=== PATIENT | male | born 1950 | race Caucasian/White ===

== ENCOUNTER → 2023-05-05 08:32 | Outpatient (REF) | payer MEDICARE, OTHER, SELFPAY | LOC: MRI 3T 08:32 | PROVIDERS: ATTENDING PHYSICIAN Physical Medicine & Rehabilitation; FAMILY PHYSICIAN Family Medicine | DX: M54.12 Radiculopathy, cervical region (principal) | CPT/HCPCS: 72141 ==

== ENCOUNTER → 2024-03-20 10:37 | Outpatient (REF) | payer MEDICARE, OTHER, SELFPAY | LOC: HWRAD 10:37 | PROVIDERS: ATTENDING PHYSICIAN Family Medicine | DX: R51.9 Headache, unspecified (principal) | CPT/HCPCS: 70450 ==

== ENCOUNTER → 2024-05-29 08:49 | Outpatient (REF) | payer MEDICARE, OTHER, SELFPAY | LOC: RAD 08:49 | PROVIDERS: ATTENDING PHYSICIAN Student in an Organized Health Care Education/Training Program; FAMILY PHYSICIAN Family Medicine | DX: R10.9 Unspecified abdominal pain (principal) | CPT/HCPCS: 74177; Q9967 ==

== ENCOUNTER → 2024-08-07 09:59 | Outpatient (REF) | payer MEDICARE, OTHER, SELFPAY | LOC: HWRAD 09:59 | PROVIDERS: ATTENDING PHYSICIAN Family Medicine | DX: N50.89 Other specified disorders of the male genital organs (principal); N50.819 Testicular pain, unspecified; N43.0 Encysted hydrocele | CPT/HCPCS: 76870; 93976 ==

== ENCOUNTER → 2024-11-24 15:44 | Outpatient (REF) | payer MEDICARE, OTHER, SELFPAY | LOC: RAD 15:44 | PROVIDERS: ATTENDING PHYSICIAN Family Medicine | DX: R06.02 Shortness of breath (principal) | CPT/HCPCS: 71275; Q9967 ==

== ENCOUNTER → 2024-11-26 07:57 | Outpatient (REF) | payer MEDICARE, OTHER, SELFPAY | LOC: HWRCS 07:57 | PROVIDERS: ATTENDING PHYSICIAN Internal Medicine Cardiovascular Disease; FAMILY PHYSICIAN Family Medicine | DX: R06.09 Other forms of dyspnea (principal) | CPT/HCPCS: 78452; 93017; A9500 ==

== ENCOUNTER → 2024-11-27 10:54 | Outpatient (REF) | payer MEDICARE, OTHER, SELFPAY | LOC: HWRCS 10:54 | PROVIDERS: ATTENDING PHYSICIAN Internal Medicine Cardiovascular Disease; FAMILY PHYSICIAN Family Medicine | DX: R06.09 Other forms of dyspnea (principal) | CPT/HCPCS: 93306 ==

== ENCOUNTER 2024-11-30 11:34 | Day surgery (SDC) | payer MEDICARE, OTHER, SELFPAY ==
[2024-11-30] VITALS (15 sets, daily range): BP systolic 98–158; BP diastolic 50–79; BMI 20.2
[2024-11-30 06:22] LABS: Hematocrit 43.8 % (39.0-52.0); Hemoglobin 14.6 g/dL (13.0-18.0); Mean Corp Hgb Conc. 33.3 g/dL (33.0-37.0); Mean Corpuscular Volume 94.4 fL (80.0-94.0); Nucleated Red Blood Cells % 0 % (-); Platelet Count 206 10^3/uL (130-400); Red Cell Dist. Width 12.6 % (11.5-14.5)
[2024-11-30 06:33] LABS: ALT (SGPT) 19 U/L (0-50); AST (SGOT) 22 U/L (17-59); Albumin 4.7 g/dl (3.5-5.0); Alkaline Phosphatase 48 U/L (38-126); Blood Urea Nitrogen 13 mg/dl (9-20); Calcium 9.2 mg/dl (8.4-10.2); Carbon Dioxide 27 mmol/L (22-30); Chloride 103 mmol/L (98-107); Estimated Creatinine Clearance 77 ml/min; Glucose 105 mg/dl (70-99); Potassium 3.9 mmol/L (3.5-5.1); Sodium 137 mmol/L (135-145); Total Protein 7.3 g/dl (6.3-8.2); eGFR > 60.00
--- NOTE | 2024-11-30 06:39 | ED.GENMED ---
History of Present Illness
General
Chief Complaint: Cardiac Symptoms
Source: patient and spouse
Time Seen by Provider: 11/30/24 06:07
Nursing documentation reviewed up to this point in time: agreed with
History of Present Illness
History of Present Illness:
Patient is a 74-year-old male past with history of hypertension hyperlipidemia diverticulitis presents to the ER for evaluation of chest pain. Patient has had intermittent shortness of breath for the past 1 month and has been eval by cardiology.
He has had recent imaging/testing including CAT scan which was negative. In addition patient had stress test which showed moderate size defect consistent with ischemia.
Patient reports this morning he was woken around 430 morning by a squeezing chest pain in the midsternal region. He did not feel short of breath with this. He did have some tingling in his arms and fingers. Presently he feels that symptoms are
improving.
He is scheduled for cardiac catheterization tomorrow morning. He is followed by Dr. Cholo Moreno.
Past History
Past History
ED Past Medical History: GERD, Hypercholesterolemia and Other (Sigmoid diverticulitis)
ED Past Surgical History: Other (Surgery for diverticulitis)
Social History
Tobacco: Non-smoker
Alcohol: Other
Drug: None
Personal:
Living: with family
Employment: Other
Family History
Family History: Other (n/c)
Phy Exam
General Physical Exam
General Presentation: no apparent distress
General age: appears stated age
General Skin: warm and dry
General Habitus: normal
General Mental: alert
General Hydration: appears well hydrated
Cardiovascular Exam
Cardiovascular Exam: regular rate/rhythm, no murmur and normal peripheral pulses
Pulmonary Exam
Pulmonary Exam: lungs clear and no respiratory distress
Neurological Exam
Neurological Exam: alert and oriented x3
Musculoskeletal Exam
Musculoskeletal Exam: full ROM
Skin Exam
Skin Exam: normal color and warm/dry
Psychiatric Exam
Psychiatric Exam: normal mood/affect
Course
Orders/Labs/Results
Orders:
Orders
11/30/24 05:40
ECG [Electrocardiogram (*1)] Urgent
Reason for Study: Chest Pain
EKG- Treatment ONCE
11/30/24 06:09
Complete Blood Count/With Diff Urgent
Comprehensive Metabolic Panel Urgent
Troponin I Urgent
11/30/24 06:41
Aspirin Chewable [Low Strength Aspirin] 324 mg PO NOW STA
11/30/24 08:36
Troponin I Urgent
11/30/24 Lunch
Cholesterol Lowering
At Your Request: Full Participation
Cholesterol Lowering: Sodium, 2 Gram
11/30/24 10:06
Fentanyl Citrate/Pf [Sublimaze] 100 mcg .ROUTE .STK-MED ONE
Heparin 10,000 units .ROUTE .STK-MED ONE
Midazolam HCl [Versed] 2 mg .ROUTE .STK-MED ONE
11/30/24 10:11
Heparin 1000 Units/500 ml [Heparin] 1,000 units in 500 ml .ROUTE .STK-MED
Heparin Sodium,Porcine/Ns/Pf [Heparin 2000 Units/1000 ml] 2,000 unit in 1,000 ml .ROUTE .STK-MED
Lidocaine HCl/Pf [Xylocaine-Mpf 1% Vial] 100 mg .ROUTE .STK-MED ONE
Nitroglycerin [Tridil] 1,500 mcg .ROUTE .STK-MED ONE
Verapamil Injectable [Isoptin/Verapamil Injection] 5 mg .ROUTE .STK-MED ONE
11/30/24 10:49
Lidocaine HCl/Pf [Xylocaine-Mpf 1% Vial] 100 mg .ROUTE .STK-MED ONE
11/30/24 11:38
Electrocardiogram (*1) Urgent
Reason for Study: Other
Other Reason for Exam: post cath
Comment: dca
Activity As Directed
Activity Level: Bedrest
Comment: refer to hemostasis device used for bedrest duration, then ambulate ad zain
[facility] Procedure As Directed
Cardiac Cath Procedure: percutaneous coronary intervention
Femoral Artery Hemostasis Method As Directed
Procedure performed:: Percutaneous Coronary Int
Type of femoral hemostasis method used:: Internal Closure Device
Duration of bedrest (hours):: 3
Call provider if:: hematoma present after hemostasis achieved
Head of Bed-Restrictions As Directed
Comment: may elevate head of bed 30 degrees
Intake/ Output As Directed
Frequency: Per unit guidelines
Notify MD As Directed
Notify physician if: immediately for chest pain or bleeding from access site(s)
Site Checks As Directed
Check access site for bleeding/hematoma: Yes
Comment: on arrival, Q15min x4, Q30min x2, Q1 hr x2, Q2 hr x2, Q4 hr or per
protocol
Vascular Checks As Directed
Location: distal to access site - pulse check
Frequency: Other
Comment: on arrival, Q15min x4, Q30min x2, Q1 hr x2, Q2 hr x2, Q4 hr or per protocol
Vital Signs As Directed
Frequency: Other
Additional Instructions:: on arrival, Q15min x4, Q30min x2, Q1 hr x2, Q2 hr x2, then Q4 hr or per unit
protocol
11/30/24 11:45
0.9% Sodium Chloride 1000 ml [Nss] 1,000 ml IV PER PROTOCOL
Infusion rate in mL/kg/hr:: 1.5
Infusion rate in mL/hr:: 89
Duration of infusion (hours):: 5
11/30/24 11:57
Admit/Transfer Patient As Directed
Co-Sign Provider:
Level of Care: Observation services
Assign to:: IVU
Physician / Group: Eugenia Miller
Diagnosis: Chest Pain unclear etiology
PRN Pain Medication Management As Directed
May give lesser potent ordered pain med per pt: Yes
preference::
Protocol:: Medication orders for pain may be administered in a
manner that supports deferring to patient preference
when the pt is:
- Requesting an ordered lesser potent pain medication.
Least to most potent pain medications are defined
as: acetaminophen < NSAID < tramadol < opioids
(morphine, oxycodone, hydromorphone).
- Requesting a lesser dose of the same medication IF
ORDERED.
- Requesting a less intrusive route of administration
if both routes are prescribed by the provider (PO <
IV).
11/30/24 11:59
Code Status As Directed
Resuscitation Status: Full Code
11/30/24 12:04
Bisacodyl [Dulcolax] 10 mg RECTAL [id number] PRN
Docusate W/Senna [Senokot-S] 1 tablet PO BIDPRN PRN
Polyethylene Glycol Powder [Miralax] 17 grams PO DAILYPRN PRN
11/30/24 12:04
Pneumatic Compression Sleeves As Directed
Type: Knee high
DX Deep Vein Thrombosis Video Routine
11/30/24 14:00
Amlodipine [Norvasc] 5 mg PO DAILY
11/30/24 16:30
Troponin I Routine
11/30/24 18:00
Atorvastatin [Lipitor] 80 mg PO QPM
11/30/24 20:00
Carvedilol [Coreg] 6.25 mg PO BID
Lisinopril [Zestril] 10 mg PO BID
12/01/24 06:00
Electrocardiogram (*1) IN AM
Reason for Study: Other
Other Reason for Exam: post cath
Comment: dca
Basic Metabolic Panel IN AM
Cardiovascular Evaluation IN AM
Complete Blood Count/No Diff IN AM
12/01/24 08:00
Aspirin Chewable [Low Strength Aspirin] 81 mg PO DAILY
Pantoprazole [Protonix] 40 mg PO DAILY
Abnormal Lab Results
11/30/24 11/30/24 11/30/24
06:09 11:15 11:37
RBC 4.64 L 10^6/uL
(4.70-6.10)
MCV 94.4 H fL
(80.0-94.0)
MCH 31.5 H pg
(27.0-31.0)
Glucose 105 H mg/dl
(70-99)
POC ACT Low Range 274 H Seconds 268 H Seconds
(116-155) (116-155)
11/30/24 06:09
11/30/24 06:09
Vital Signs
Initial and Last Documented VS:
Initial Vital Signs
Temp Pulse Resp BP Pulse Ox
97.4 F 76 20 138/72 100
11/30/24 05:37 11/30/24 05:37 11/30/24 05:37 11/30/24 05:37 11/30/24 05:37
Last Documented Vital Signs
Temp Pulse Resp BP Pulse Ox
98.5 F 82 18 125/71 100
11/30/24 12:10 11/30/24 10:05 11/30/24 13:13 11/30/24 09:00 11/30/24 12:10
MDM/Problems Addressed
Differential Diagnosis Includes:
Not limited to ACS less likely reflux
MDM/Problems Addressed:
As documented patient is a 74-year-old male who is scheduled to have a cardiac catheterization tomorrow for an abnormal outpatient stress test November 26. Patient was awoken by midsternal chest pain this morning which has since resolved he was
given aspirin by myself, his initial cardiac troponin is negative no acute ST elevation. Case reviewed with cardiology on-call Dr. Gil and plan to the patient directly to [facility].
Chronic conditions affecting care:
High blood pressure hyperlipidemia
*Pulse Oximetry
SaO2: 100
Oxygen Mode of Delivery: Room air
Patient hypoxic: no
*EKG
Interpreted by ED Provider?: Yes
Interpretation: abnormal
Heart Rate: 76
Rate: normal
Rhythm: sinus
Ischemia: non-specific ST changes
*Critical Care Note
Total Time (30-74mins, 75-104mins- exclusive of procedures): Not Applicable
Patient Management
Discussion with other providers: [employer] (Cardiology Dr. Gil )
ED Attending Note
-
Portions of this chart may have been created with voice recognition software.� Occasional wrong word or��sound alike� substitutions may have occurred due to the inherent limitations of voice recognition software.
Discharge Plan
Departure
Patient Disposition: CLAIMS REPRESENTATIVE
Presentation/result/management discussed w/ accepting MD/DO: adele
Patient with high blood pressure during this ER visit?: Yes
Condition: Fair
Covid-19: Not Applicable
Discharge Problem:
Chest pain
Interventions
Interventions:
*Risk Screen - Suicide Last Done: 11/30/24 05:37
*General Assessment Last Done: 11/30/24 05:51
*Neglect/Abuse Screening Last Done: 11/30/24 05:37
*ED- Fall Risk Assessment Last Done: 11/30/24 05:51
*ED COVID-19 Vaccine History Last Done: 11/30/24 06:34
*Nursing Disposition Last Done: 11/30/24 10:28
ED- Pulmonary Assessment Last Done: 11/30/24 05:51
ED- Cardiac Assessment Last Done: 11/30/24 05:51
Discharge Date and Time
Discharge Date/Time: 11/30/24 10:28
[2024-11-30 06:45] LABS: Troponin I < 0.012 ng/ml
[2024-11-30] MEDS: LOW STRENGTH ASPIRIN 324 MG PO (06:49)
--- NOTE | 2024-11-30 07:20 | CON.CAR ---
Addendum entered and electronically signed by Akira Haskins MD 11/30/24 10:17:
Attending addendum: Patient seen and examined. PA note reviewed and findings independently confirmed by me. I personally reviewed stress, echo findings. I met with patient and his and reviewed history. He has a long history of chest
discomfort. His recent stress study was notable for an average exercise capacity with marked ECG changes involving leads II, 3, aVF and anterolateral leads V4-V6. Perfusion revealed an apical and inferior apical reversible defect as well as septal
defect. He was scheduled for coronary angiography but developed repeat chest discomfort. He became chest pain-free. His initial troponin was undetectable and his electrocardiogram was without acute ST-T changes. He remains chest pain-free.
Physical exam
GEN: AAO x 3.��No acute distress
HEENT:��NC/AT, sclera are anicteric, hearing and nares are normal.�
NECK: Supple.��Normal JVP
LUNGS: Clear to bases bilaterally.��No wheezing or rhonchi
CV: Regular rate and rhythm.��Normal S1/S2.��No S3, No S4.��Murmur: None
ABD : Soft, NT, ND, No HSM.��Bowel sounds are present.
EXT: No CCE. Dorsalis pedal and posterior tibial pulses are palpable but faint
NEURO: No focal neurologic deficits
RECOMMENDATION:
-Discussed proceeding with coronary angiography which had been scheduled for later this week. The risks and benefits of the procedure have been explained.
-Patient received aspirin 325 mg on arrival to the emergency room
-Further management decisions to be made after the angiogram is completed
-Will continue to trend additional troponin levels
-Fasting lipid profile
Original Note:
Consultation
Consultation Request
Date/Time Consultation Requested: 11/30/2024, 0700
Date/Time Consultation Performed: 11/30/2024 0720
Requesting Provider: Renetta Lawrence
Performing Provider: MELISSA Posadas for Dr Haskins
Reason for Consultation: chest pain and SOB
Medical History
-
Chief Complaint: chest pain
History of Present Illness:
74-year-old male with past medical history hypertension, hyperlipidemia, GERD, atypical chest pain, recent development of dyspnea on exertion and PND over past month. Seen in office 11/24/[address] Bonilla and echo and nuclear stress test ordered.
Abnormal exercise nuclear stress test on 11/26/2024 showing moderate sized moderate partially reversible defect in the apex, apical septum, inferior apical, mid inferoseptal, mid anterior septal, basal inferion septal and mod inferior regions.
Achieved 7 METS on Mekhi protocol, exercise limited by [place]. Scheduled for cath tomorrow. Echo on 11/27/2024 showed normal LV/RV size and function with no significant valvular heart disease. Patient had chest CT 11/24/2024 that showed no evidence of
central pulmonary embolism.
This morning patient woke up with squeezing substernal chest pain as well as R sided pain radiating from RUQ to R shoulder and shortness of breath, improved upon presentation to ED. Troponin undetectable x 1. EKG NSR 1st degreeAVB, no ST-T wave
abnormality.
Yesterday pt walked through [place] from [facility] to movie theater and when sat down at theater felt SOB, thought he may have to leave but symptoms resolved.
He has reduced his walking distance due to fear of developing shortness of breath.
PMH:
Hypertension
Hyperlipidemia
GERD
Diverticulitis
Sigmoid diverticuliti esophageal stricture
Nephrolithiasis
Cholecystectomy 2022
Past Medical History
Past Medical History: Other (As above)
Past Surgical History: Appendectomy (Open sigmoidectomy 2007, right ankle repair, right C7-T1 I L HARPAL 05/2023, /06/2023, /12/2023) and Cholecystectomy
Social History
Tobacco: Non-Smoker
Alcohol: Occasional
Drug: None
Family History
Family History: Other (Father with bypass at age 80, son with Marfan and ascending aorta replaced)
Allergies / Home Medications
Allergy/AdvReac Type Severity Reaction Status Date / Time
azithromycin Allergy THROAT Verified 11/30/24 05:40
CLOSES
clindamycin HCl (From Allergy dizzy,nause Verified 11/30/24 05:40
Cleocin) a
erythromycin base Allergy Unknown Verified 11/30/24 05:40
minocycline Allergy dizzy,nause Verified 11/30/24 05:40
a
Tetracyclines Allergy Unknown Verified 11/30/24 05:40
�Medication �Instructions �Recorded �Confirmed �Type
atorvastatin 10 mg tablet 10 mg PO DAILY High Cholesterol 08/18/14 12/25/22 History
Al hyd-Mg tr-alg ac-sod bicarb 80 1 tab PO BIDPRN PRN gerd 09/06/22 12/25/22 History
mg-14.2 mg chewable tablet
(Gaviscon)
acetaminophen 325 mg tablet 650 mg PO Q4HPRN PRN mild pain 09/06/22 12/25/22 History
(Tylenol)
lisinopril 10 mg tablet 10 mg PO DAILY Blood Pressure 09/06/22 12/25/22 History
omeprazole 40 mg capsule,delayed 40 mg PO DAILY Gastrointestinal 09/06/22 12/25/22 History
release Issue
ibuprofen 200 mg tablet 400 - 600 mg (2 - 3 x 200 mg) PO 12/25/22 Rx
Q6HPRN PRN moderate pain #1 tab
metronidazole 0.75 % topical gel 1 applic topical DAILYPRN PRN face 12/25/22 12/25/22 History
oxycodone 5 mg tablet 5 mg PO Q4HPRN PRN 12/25/22 Rx
breakthrough/severe pain #10 tabs
tamsulosin 0.4 mg capsule 0.4 mg PO QPM 12/25/22 12/25/22 History
Review of Systems
-
History Source: Patient
Constitutional: No Symptoms
Physical Exam
Vital Signs
Temp Pulse Resp BP Pulse Ox
97.4 F 69 15 158/79 97
11/30/24 05:37 11/30/24 06:45 11/30/24 06:45 11/30/24 05:51 11/30/24 06:45
GEN: No distress, awake, Ox3
HEENT: supple, anicteric, mmm
LUNGS: CTA, no wheezes/rales
CV: Reg, S1/S2, no murmur
ABD: soft, BS+, NT/ND
EXT: No edema
NEURO: Gross non-focal
SKIN: No rash
Lab Results
11/30/24 06:09
11/30/24 06:09
Troponin I < 0.012 ng/ml 11/30/24 06:09
Impression / Plan
-
PCP: Alexandr Purvis
Primary janitor custodian: Cholo Bonilla MD
Impression:
Chest pain
Shortness of breath
Abnormal nuclear stress test
Hypertension
Hyperlipidemia
GERD
Previous cardiovascular testing:
Echo 11/27/2024: Normal LV/RV size and function, LVEF 61%, no significant valvular abnormalities
Exercise nuclear stress test 11/26/2024: moderate sized moderate partially reversible defect in the apex, apical septum, inferior apical, mid inferoseptal, mid anterior septal, basal inferior septal and mod inferior regions. Achieved 7 METS on Mekhi
protocol, exercise limited by [place].
Plan:
74-year-old male with PMH hypertension, hyperlipidemia, GERD, atypical chest pain, recent development of dyspnea on exertion and PND, recent nuclear stress test with moderate reversible defects, scheduled for [facility] tomorrow, presents with squeezing
chest pain and shortness of breath, waking him from sleep. Symptoms resolved upon presentation to ED. Troponin negative x 1, EKG nonischemic. Rec'd ASA 324 mg in ED.
-trend troponin
-keep NPO, for possible cath today
-currently CP/SOB- free
-cont Lisinopril
-cont statin
- Continue meds for GERD, omeprazole and famotidine
-telemetry personally reviewed: NSR
-creat 0.7
discussed with nursing, pt and
Data Reviewed
-
EKG: Tracing Personally Visualized and interpreted
Labs: Labs Reviewed by me
[2024-11-30 09:08] LABS: Troponin I < 0.012 ng/ml
[2024-11-30 11:33] LABS: ACT-LR - POC 274 Seconds (116-155)
[2024-11-30 11:52] LABS: ACT-LR - POC 268 Seconds (116-155)
--- NOTE | 2024-11-30 11:55 | HPS.HSE ---
Family Physician
-
Family Physician: Alexandr Purvis
Chief Complaint
-
Chest Pain
History of Present Illness
74M HTN, HLD, GERD, atypical chest pain, recent development of dyspnea on exertion and PND over past month. Recently seen by Cardiology, ECHO and nuclear stress performed. Abnormal exercise nuclear stress test on 11/26/2024 showing moderate sized
partially reversible defect. Achieved 7 METS on Mekhi protocol, exercise limited by [place]. ECHO 11/27/2024 showed normal LV/RV size and function with no significant valvular heart disease. Patient had chest CT 11/24/2024 that showed no evidence of
central pulmonary embolism. 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 Improved upon presentation to ED. Troponin undetectable. EKG NSR, no
significant ST-T wave abnormalities noted. Patient subsequently underwent Cath with no signficant coronary stenosis noted.
Medical History
Past Medical History
Past Medical History: Reports Other (as above)
Past Surgical History: Reports Other (as above)
Social History
Tobacco: Non-smoker
Drug: None
Personal:
Living: With Family
Family History
Family History: Not pertinent (reviewed)
Allergies / Home Medications
Allergies reflects when Allergies were last updated in [facility].
Home Medications with original date entered in [facility]
Allergy/Medication List:
Allergies
Allergy/AdvReac Type Severity Reaction Status Date / Time
azithromycin Allergy THROAT Verified 11/30/24 05:40
CLOSES
clindamycin HCl (From Allergy dizzy,nause Verified 11/30/24 05:40
Cleocin) a
erythromycin base Allergy Unknown Verified 11/30/24 05:40
minocycline Allergy dizzy,nause Verified 11/30/24 05:40
a
Tetracyclines Allergy Unknown Verified 11/30/24 05:40
Home Medications
atorvastatin 10 mg tablet 10 mg PO DAILY High Cholesterol 08/18/14
lisinopril 10 mg tablet 10 mg PO BID Blood Pressure 09/06/22
omeprazole 40 mg capsule,delayed release 40 mg PO DAILY Gastrointestinal Issue 09/06/22
Review of Systems
-
A 12 point ROS was completed and negative except as noted: Yes
Constitutional: Reports Other (as below)
Physical Exam
Vital Signs
Vital Signs
Temp Pulse Resp BP Pulse Ox
97.4 F 82 19 125/71 100
11/30/24 05:37 11/30/24 10:05 11/30/24 10:05 11/30/24 09:00 11/30/24 09:45
Physical Exam
General: Other (as below)
Laboratory Results
-
11/30/24 06:09
11/30/24 06:09
Laboratory Results
Total Bilirubin 1.1 mg/dl (0.2-1.3) 11/30/24 06:09
AST 22 U/L (17-59) 11/30/24 06:09
ALT 19 U/L (0-50) 11/30/24 06:09
Alkaline Phosphatase 48 U/L (38-126) 11/30/24 06:09
Troponin I < 0.012 ng/ml 11/30/24 08:36
Impression/Plan
-
ROS
General: Denies fever chills night sweats unexpected weight loss
Neuro: Denies seizure shaking loss of consciousness dizziness vertigo
Psych: denies depression hallucinations confusion manic episodes
Endocrine: Denies polyuria polydipsia polyphagia heat/cold intolerance
HEENT: Denies blindness visual disturbances epistaxis
Pulmonary: reports exertional dyspnea
Cardiovascular: denies chest pain palpitations leg swelling
Hematology: denies signs symptoms of anemia easy bruising/bleeding
Gastrointestinal: denies nausea vomiting diarrhea constipation hematemesis hematochezia melena
Genito-Urinary: denies retention incontinence dysuria
Musculoskeletal: denies joint pain weakness
Dermatology: denies rash laceration bruising
Physical Exam
General: No pallor, cyanosis, or jaundice.
HEENT: Throat clear. PERRLA Normocephalic atraumatic
NECK: Supple. No JVD Carotid Bruits
RESPIRATORY: Lungs clear to auscultation. No crackles wheezes stridor
CVS: S1, S2 normal. RRR. No murmur, rub or gallop.
ABDOMEN: Soft, non-tender. No distension. BS+/normal.
EXTREMITIES: No peripheral cyanosis or edema.
TAPPER SHANK: AOx3 conversant coherent
Psych: Calm
IMPRESSION:
74M HTN, HLD, GERD, atypical chest pain, recent development of dyspnea on exertion and PND over past month. Recently seen by Cardiology, ECHO and nuclear stress performed. Abnormal exercise nuclear stress test on 11/26/2024 showing moderate sized
partially reversible defect. Achieved 7 METS on Mekhi protocol, exercise limited by [place]. ECHO 11/27/2024 showed normal LV/RV size and function with no significant valvular heart disease. Patient had chest CT 11/24/2024 that showed no evidence of
central pulmonary embolism. 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 Improved upon presentation to ED. Troponin undetectable. EKG NSR, no
significant ST-T wave abnormalities noted. Patient subsequently underwent Cath with no significant coronary stenosis noted.
PLAN:
#Chest Pain unclear etiology s/p cath 11/30
#HTN
Troponin neg x3
Cardio eval appreciated aggressive BP control, Coreg 6.25 mg BID added, lisinopril reduced from 10 mg BID to daily, Amlodipine 5 mg daily added
Cont Post-cath care as per Cardio
Cont ASA 81 mg daily
Atorvastatin increased from 10 mg to 80 mg QPM
#Possible GERD contributing to chest pain
cont PPI
maalox prn
dvt ppx SCD
Full Code
Discussed with patient and patient's Daniela
I spent a total of 76 minutes with the patient or on the floor. More than 50% of this time involved counseling and coordination of care.
[2024-11-30] MEDS: NSS 1000 IV (12:40)
--- NOTE | 2024-11-30 13:29 | ITS.CL.CATH ---
School Librarian - Catheterization
Cardiac Catheterization
Procedure Report:
LEFT HEART CATHETERIZATION
Date of Procedure: November 30, 2024
Referring: Dr. Cholo Bonilla
PROCEDURES:
1. Left heart catheterization with coronary and single-plane left ventriculography
2. Hemodynamic assessment of circumflex and the mid LAD using a [place] Omni wire. The iFR measured above the ischemic threshold in both vessels as described below
INDICATION: This is a 74-year-old gentleman with a past medical history notable for hypertension and hyperlipidemia. A recent stress study for evaluation of midepigastric discomfort radiating through to his back and chest discomfort radiating to
the right shoulder was performed. The stress study was notable for ECG changes with 2-[address] depression involving leads II, III, aVF and V4-V6. SPECT imaging was notable for a moderate sized reversible defect involving the apex, septum, and
apical inferior wall. Given these findings he was scheduled for elective coronary angiography. Unfortunately, he developed chest discomfort leading him to seek medical attention in the emergency room at [facility]. His initial troponin
was undetectable. However, he is scheduled for coronary angiography on 12/01 in will proceed with left heart catheterization today given his symptoms and presentation.
ACCESS: Unsuccessful right radial access. Arterial access was obtained in the right common femoral artery and a 6 Romanian sheath was inserted. Ultrasound guidance was utilized
HEMODYNAMICS : (mmHg)
AO (s/d) : 182/92, 133
LV (s/d) : 181/14
LVEDP : 28
CORONARY FINDINGS
DOMINANCE: Right
LEFT MAIN: 20% mid stenosis with mild distal tapering
LEFT ANTERIOR DESCENDING: The LAD arises normally from the left main and runs in the anterior interventricular groove. The mid LAD near the origin of the first diagonal branch has a 20% narrowing and the mid to distal LAD beyond the second diagonal
branch has a 50-60% stenosis. The mid to distal LAD has only minor luminal irregularities. The iFR in the distal LAD beyond the stenotic segment measured just above the ischemic threshold at 0.90, 0.90, and 0.90. The guide catheter was withdrawn
to the left main where the Pd/Pa measured 1.0 confirming no baseline drift
CIRCUMFLEX: The ostium of the circumflex was difficult to visualize. The origin of the circumflex from the left main was at an acute angle and in some views a high-grade ostial stenosis could not be excluded while in other views the ostium of the
circumflex appeared smooth. OM1 arises from the mid circumflex and is widely patent. The circumflex terminates in a small to medium caliber OM 2. The iFR in the circumflex measured above the ischemic threshold at 1.0, 1.0, and 1.0. The guidewire
was withdrawn to the guide catheter where no baseline drift was noted. There was no baseline drift at the guide catheter origin
RIGHT CORONARY ARTERY: The right coronary artery is a large-caliber dominant vessel that has only minor irregularities over its course. No focal high-grade obstructive stenosis is noted. The PDA is large and widely patent.
HEMODYNAMIC ASSESSMENT OF THE CIRCUMFLEX AND LAD WITH A [place] OMNI WIRE: The origin of the left main was cannulated with a 6 Fr XB 3.5 guide catheter. Intravenous heparin was administered and the ACT was followed during the procedure. Two
hundred micrograms of intracoronary nitroglycerin was given through the guide catheter. A [place] Omni wire was advanced to the guide catheter tip and normalized to guide catheter pressure. The Omni wire was then carefully manipulated across the
stenosis at the origin of the circumflex where the iFR serially measured 1.0 x 3. The wire was withdrawn to the guide catheter and no baseline drift was noted.
The guidewire was redirected to the distal LAD beyond the second diagonal branch and the 50-60% stenosis in the mid to distal LAD. The iFR serially measured just above the ischemic threshold at 0.90, 0.90, and 0.90. The guidewire was withdrawn to
the guide catheter and the Pd/Pa measured 1.0 confirming no baseline drift.
VENTRICULOGRAPHY: Left ventriculography was performed in an OZUNA projection. The digital single-plane left ventricular ejection fraction is estimated at 65% and no regional wall motion abnormalities are noted.
SEDATION: 76 minutes of procedural sedation was utilized. An independent medical transcription supervisor was present to assist with and help manage the patient's level of consciousness and physiologic status.
RADIATION SUMMARY: Fluoro Time (min): 9.9, Dose (mGy): 287, DAP (Gy.cm2) : 17.6
Closure Device: 6 Romanian Angio-Seal RFA
CONCLUSIONS
1. Chest pain with no obvious culprit coronary stenosis. The iFR in the circumflex and LAD measured above the ischemic threshold.
2. Preserved LV systolic function
RECOMMENDATIONS
1. Continue to follow serial troponin levels
2. Needs aggressive blood pressure control. Will decrease lisinopril to 10 mg daily and add amlodipine 5 mg daily as well as carvedilol 6.25 mg p.o. twice daily
3. Continue aspirin 81 mg daily
4. Will check fasting lipid profile and increase atorvastatin to 80 mg daily with goal LDL cholesterol clearly less than 70 mg/dL
Copy to: Dr. Cholo Bonilla
[2024-11-30] MEDS: NORVASC 5 MG PO (14:28)
--- NOTE | 2024-11-30 14:34 | CM ---
Chart reviewed. Patient is independent of ADLS, lives with his in a 2 STH, 2 KALEE, 0 DME. Plan is for the patient to return home. CM to follow
--- NOTE | 2024-11-30 14:45 | PTCARENOTE ---
Pt AAOx3 very pleasant, Came back from the [employer] [place] with a R groin puncture, site intact no hematoma present.
[2024-11-30] MEDS: PROTONIX 40 MG PO (16:51)
[2024-11-30] MEDS: LIPITOR 80 MG PO (17:08)
[2024-11-30 17:46] LABS: Troponin I < 0.012 ng/ml
[2024-11-30] MEDS: COREG 6.25 MG PO (19:45)
[2024-11-30] MEDS: TYLENOL 650 MG PO (19:46)
[2024-11-30] MEDS: MAALOX 30 ML PO (21:02)
[2024-12-01 04:32] VITALS: BP 123/72
[2024-12-01 05:04] VITALS: BMI 19.4
[2024-12-01 05:22] LABS: Hematocrit 41.0 % (39.0-52.0); Hemoglobin 14.0 g/dL (13.0-18.0); Mean Corp Hgb Conc. 34.1 g/dL (33.0-37.0); Mean Corpuscular Volume 93.2 fL (80.0-94.0); Platelet Count 197 10^3/uL (130-400); Red Cell Dist. Width 12.7 % (11.5-14.5)
--- NOTE | 2024-12-01 05:27 | PTCARENOTE ---
Pt NSR on monitor, VSS. Pt C/O mid chest pain Maalox PRN given. Rt groin dsg CDI. Pt ambulates with x 1 assist. Call bruno w/in reach
[2024-12-01 05:47] LABS: Blood Urea Nitrogen 14 mg/dl (9-20); Calcium 8.6 mg/dl (8.4-10.2); Carbon Dioxide 25 mmol/L (22-30); Chloride 105 mmol/L (98-107); Estimated Creatinine Clearance 86 ml/min; Glucose 96 mg/dl (70-99); HDL Cholesterol 50 mg/dl; LDL Cholesterol, Calculated 67 mg/dl; Potassium 4.0 mmol/L (3.5-5.1); Sodium 136 mmol/L (135-145); Very Low Density Lipoprotein 14 mg/dl (0-30); eGFR > 60.00
[2024-12-01 07:20] VITALS: BP 112/51
[2024-12-01] MEDS: PROTONIX 40 MG PO (08:20)
[2024-12-01] MEDS: NORVASC 5 MG PO (08:20)
[2024-12-01] MEDS: COREG 6.25 MG PO (08:20)
[2024-12-01] MEDS: LOW STRENGTH ASPIRIN 81 MG PO (08:20)
[2024-12-01] MEDS: ZESTRIL 10 MG PO (08:20)
--- NOTE | 2024-12-01 11:09 | W.PN.HOSP.TC ---
Addendum entered and electronically signed by Eugenia Miller MD 12/01/24 17:50:
GI evyosi appreciated outpt follow up recommended
stable for discharge home with outpatient follow up recommendations
Total Time Preparing Discharge ___40____ minutes including examination of the patient, summary of the hospital stay, instructions for continuing care to all relevant caregivers; and preparation of discharge records, prescriptions, and referral
forms if necessary.
Original Note:
Today's Communication/Plan
-
Blood pressure control as per Cardio
GI eval
Assessment / Plan
Assessment / Plan
Physical Exam
General: No pallor, cyanosis, or jaundice.
HEENT: Throat clear. PERRLA Normocephalic atraumatic
NECK: Supple. No JVD Carotid Bruits
RESPIRATORY: Lungs clear to auscultation. No crackles wheezes stridor
CVS: S1, S2 normal. RRR. No murmur, rub or gallop.
ABDOMEN: Soft, non-tender. No distension. BS+/normal.
EXTREMITIES: No peripheral cyanosis or edema.
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
Psych: Calm
IMPRESSION:
74M HTN, HLD, GERD, atypical chest pain, recent development of dyspnea on exertion and PND over past month. Recently seen by Cardiology, ECHO and nuclear stress performed. Abnormal exercise nuclear stress test on 11/26/2024 showing moderate sized
partially reversible defect. Achieved 7 METS on Mekhi protocol, exercise limited by [place]. ECHO 11/27/2024 showed normal LV/RV size and function with no significant valvular heart disease. Patient had chest CT 11/24/2024 that showed no evidence of
central pulmonary embolism. data examination clerk patient woke with squeezing substernal chest pain with R sided pain radiating to R shoulder, shortness of breath, and sweaty palms. Improved upon presentation to ED. Troponin undetectable. EKG NSR, no
significant ST-T wave abnormalities noted. Patient subsequently underwent Cath with no significant coronary stenosis noted.
PLAN:
#Chest Pain unclear etiology s/p cath 11/30
#HTN
Troponin neg x3
Cardio eval appreciated aggressive BP control, Coreg 6.25 mg BID added, lisinopril reduced from 10 mg BID to daily, Amlodipine 5 mg daily added
Cont Post-cath care as per Cardio
Cont ASA 81 mg daily
Atorvastatin increased from 10 mg to 80 mg QPM
#Possible GERD contributing to chest pain
#Hx Schatzki rings requiring dilation
#Hx Diverticulitis sigmoidectomy
#Hx Cholecystectomy
#Wt and appetite loss for the last year
cont PPI
maalox prn
GI eval
PT/OT eval appreciated no needs
dvt ppx SCD
Full Code
I spent a total of 45 minutes with the patient or on the floor. More than 50% of this time involved counseling and coordination of care.
Anticipated Discharge: Within 24 hours
Subjective/Interval History
-
Date of Service: December 01, 2024
No acute distress, appears comfortable. Intermittent episodes chest pain noted last 24 hours, improved with prn maalox. Tolerating diet.
Objective Data
-
Labs:
Laboratory Results
12/01/24
04:56
WBC 7.4
Hgb 14.0
Hct 41.0
Plt Count 197
Sodium 136
Potassium 4.0
Chloride 105
Carbon Dioxide 25
BUN 14
Creatinine 0.6 L
Glucose 96
Calcium 8.6
Vital Signs:
Vital Signs
Temp Pulse Resp BP Pulse Ox
97 F 80 14 112/51 100
12/01/24 07:20 12/01/24 08:20 12/01/24 07:20 12/01/24 08:20 12/01/24 07:20
I&O
11/30/24 12/01/24 12/02/24
06:59 06:59 06:59
Intake Total 774 / 774
Output Total 250 / 250
Balance 524 / 524
[2024-12-01 11:10] VITALS: BP 117/60
--- NOTE | 2024-12-01 11:18 | CM ---
Chart reviewed. Patient is independent of ADLS, lives iwth his in a 2 STH, 2 KALEE, 0 DME. Plan is for the patient to return home. CM to follow
[2024-12-01 11:29] VITALS: BP 132/58
[2024-12-01 11:36] VITALS: BP 117/60; BP 132/88; PULSE 70; O2SAT 100
--- NOTE | 2024-12-01 12:01 | PTCARENOTE ---
Pt is AOx3, no complaints of pain or discomfort. Pt is independent OOB. SR w/1st HB on tele monitor. Plan for dc later today. Call bruno within reach.
--- NOTE | 2024-12-01 12:30 | W.PN.CARDCBS ---
Addendum entered and electronically signed by Porter Pickens MD 12/01/24 14:16:
I saw and examined the patient.
The INSECT CONTROL INSPECTOR or PA's note was reviewed and I agree with the note.
Comment: General: Well developed, well nourished in NAD.
Neck: Supple, no JVD, HJR, carotids +2 B/L, no bruits bilaterally.
Heart: Non displaced PMI, RRR, no murmurs, No S3, S4, no rubs.
Lungs: Scattered rhonchi
Extremities: No clubbing, cyanosis or edema bilaterally.
Neuro: Grossly nonfocal, awake, alert and oriented x3.
No clear etiology for chest pain which is likely noncardiac. GI is evaluated patient for right upper quadrant pain. Will sign off, call with questions. Explained to patient in detail
Original Note:
Today's Communication / Plan
-
-tolerating uptitration of antihypertensives/antianginals
-GI eval of RUQ pain
Impression / Plan
-
PCP: Alexandr Purvis
Primary vocational technical education director: Cholo Bonilla MD
Impression:
Chest pain
Shortness of breath
Coronary artery disease, nonobstructive per cath 11/30/2024
Abnormal nuclear stress test 11/26/2024
Hypertension
Hyperlipidemia
GERD
Previous cardiovascular testing:
Echo 11/27/2024: Normal LV/RV size and function, LVEF 61%, no significant valvular abnormalities
Exercise nuclear stress test 11/26/2024: moderate sized moderate partially reversible defect in the apex, apical septum, inferior apical, mid inferoseptal, mid anterior septal, basal inferior septal and mod inferior regions. Achieved 7 METS on Mekhi
protocol, exercise limited by [place].
Left heart cath 11/30/2024: Left main 20% mid. LAD 20% mid mid to distal LAD beyond second diagonal branch 50 to 60% stenosis. iFR in distal LAD beyond stenotic segment measures just above ischemic threshold 0.9, 0.9, and 0.9.
Circumflex: Origin of the circumflex from the left main was at an acute angle and in some views a high-grade ostial stenosis could not be excluded while in other views the ostium of the circumflex appeared smooth. iFR and circumflex measured above
the ischemic threshold at 1.0, 1.0, and 1.0.
RCA: Minor irregularities, no focal high-grade obstructive stenosis. PDA large and widely patent.
Plan:
74-year-old male with PMH hypertension, hyperlipidemia, GERD, atypical chest pain, recent development of dyspnea on exertion and PND, recent nuclear stress test with moderate reversible defects, presents to ED 11/30/2024 with squeezing chest pain and
shortness of breath, waking him from sleep. Troponin negative x 3, EKG nonischemic. Rec'd ASA 324 mg in ED. status post left heart cath 11/30/2024 showed nonobstructive coronary artery disease.
CAD, nonobstructive
-Troponin negative x 3, ruled out MS
-Aggressive risk factor reduction
- Continue aspirin 81 mg daily
- Atorvastatin uptitrated to 80 mg daily, goal LDL less than 70, ideally less than 55. LDL 67, 12/01/2024
- Aggressive blood pressure control, BPs improved, mostly 110s/60s.
- Amlodipine 5 mg daily and carvedilol 6.25 mg twice daily added
- Continue prior to admission lisinopril, dose reduced to 10 mg daily
- Continue meds for GERD, omeprazole and famotidine
-GI eval
-telemetry personally reviewed: NSR
-creat stable 0.6
Twelve-lead EKG personally reviewed: Normal sinus rhythm first-degree AV block, 66 bpm
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
Subjective
Date of Service: December 01, 2024
cath with nonobstructive CAD
no recurrent SOB
still noting R-sided discomfort from RUQ to R shoulder.
Objective
Labs:
12/01/24 04:56
12/01/24 04:56
Labs
Hgb 14.0 g/dL (13.0-18.0) 12/01/24 04:56
Hct 41.0 % (39.0-52.0) 12/01/24 04:56
Plt Count 197 10^3/uL (130-400) 12/01/24 04:56
Sodium 136 mmol/L (135-145) 12/01/24 04:56
Potassium 4.0 mmol/L (3.5-5.1) 12/01/24 04:56
BUN 14 mg/dl (9-20) 12/01/24 04:56
Creatinine 0.6 mg/dL (0.7-1.3) L 12/01/24 04:56
Glucose 96 mg/dl (70-99) 12/01/24 04:56
Troponins
11/30/24 11/30/24 11/30/24
06:09 08:36 17:02
Troponin I < 0.012 < 0.012 < 0.012
Vital Signs and I&O:
Vital Signs
Temp Pulse Resp BP Pulse Ox
97.4 F 64 14 132/58 100
12/01/24 11:08 12/01/24 11:45 12/01/24 11:08 12/01/24 11:29 12/01/24 11:29
Vital Signs
Temp Pulse Resp BP Pulse Ox
97.4 F 64 14 132/58 100
12/01/24 11:08 12/01/24 11:45 12/01/24 11:08 12/01/24 11:29 12/01/24 11:29
Intake & Output
11/29/24 11/30/24 12/01/24 12/02/24
06:59 06:59 06:59 06:59
Intake Total 774 / 774
Output Total 250 / 250
Balance 524 / 524
Physical Exam
Physical Exam
GEN: No distress, awake, Ox3
HEENT: supple, anicteric, mmm
LUNGS: CTA, no wheezes/rales
CV: Reg, S1/S2, no murmur
ABD: soft, BS+, NT/ND
EXT: No edema
NEURO: Gross non-focal
SKIN: No rash
[2024-12-01] MEDS: MAALOX 30 ML PO (13:20)
--- NOTE | 2024-12-01 13:20 | CON.GI ---
Addendum entered and electronically signed by Willie Quigley MD 12/01/24 17:26:
I saw and examined the patient.
The DOCUMENTATION SPECIALIST or PA's note was reviewed and I agree with the note.
Comment: 74yo male presents with CP, SOB. Stress test showed a reversible defect leading to cath which was done yesterday and negative. GI consulted for eval of NCCP. He reports hx gerd and has been on omepraozle for years. He had EGD at time of
food impaction and had subsequent dilation. Deneis dysphagia currently. He points to R chest where he has discomfort and questions costochondritis, since he has been doing yard work lately. He does get reflux occasionally and points to a
different area in epigastric region
REC:
Try BID PPI for couple month to see if it treats possible extraesophageal manifestation of reflux (CP)
OK to use gaviscon or mylanta which has been helpful
F/U with me in the office to discuss EGD for further eval. Does not need inpatient EGD
I left my contact info in chart and will f/u in office
I increased his protonix to BID and told him to take his omeprazole BID after d/c (30 minutes before breakfast and dinner)
Will sign off otherwise, Please call back if needed
Original Note:
Consultation
-
Date/Time Consultation Requested: 12/01/24 1004
Date/Time Consultation Performed: 12/01/24 1300
Requesting Provider: Dr. Miller
Performing Provider: Dr. Quigley/MELISSA Strong
Reason for Consultation: CP with neg cardiac workup
Medical History
Chief Complaint / HPI
Chief Complaint: CP
History of Present Illness:
74-year-old male with past medical history of hypertension, hyperlipidemia, anxiety, BPH, hydrocele, renal cysts, GERD, duodenitis, history of Schatzki's ring 2015, umbilical hernia repair, glaucoma, small bowel obstruction secondary to adhesions,
diverticulitis status post open sigmoidectomy (2007) cholecystectomy, history of neck pain, right pectoralis pain (seen by orthopedics since 03/2023 for this), history of adenomatous colon polyps (02/2020) who presented to the emergency room after
having intermittent episodes of chest discomfort as well as dyspnea on exertion and PND. He had a negative cardiac workup which will be detailed. We are asked to evaluate for GI source of chest discomfort. The patient had a CT of the chest on
11/24/2024 that showed no evidence of PE.An echo on 11/27/2024 with no significant valvular heart disease. He did have an abnormal nuclear stress test on 11/26/2024 showing a moderately sized partial reversible defect. He did go to the [facility] on
11/30/2024 with no significant coronary stenosis noted. Medical management was recommended with aspirin 81 mg daily and increase in statin. Aggressive BP control. He had 3 negative troponins. The patient states that he has been on omeprazole 40
mg for many years, review of records at least since 2002. He did come off of it sometime the end of August to the beginning of September as he read some literature about bone loss. He did see his PCP who recommended he go back on it. He denied any GI
symptoms during that time. He did state that during this time over the past couple weeks he started using Gaviscon for increased heartburn. He states that that improved his heartburn symptoms in addition to his omeprazole 40 mg in the morning. He
does drink approximately 3-4 beers a week. He avoids NSAIDs. He does not smoke. He denies any further episodes of dysphagia or odynophagia. He did have a history of a Schatzki's ring with a food bolus of 'dry roast beef' in 2014. He did have an
EGD in 2002 that did show a Schatzki's ring as well. At the present time the patient denies any fevers, chills, nausea, vomiting, melena, hematochezia, dysphagia or odynophagia. No early satiety. They did mention to him that he lost 13 pounds
over the past 2 years. He was unaware of this weight loss. He states it must have been slowly as he did not feel as if he lost weight. He feels that his appetite has been the same over the past 2 years. He was given a dose of Mylanta yesterday
for 'heartburn'. He feels that this discomfort that he is having in the right side of his chest is 'musculoskeletal'. I was able to reproduce this with palpation. He is currently having it at the present time. We will give a dose of Mylanta to
see if this changes it. The patient also states that if he has this he will take a 'half a lorazepam'. And that improves things as well at night.
Past Medical History
Past Medical History: Other (Hypertension, hyperlipidemia, anxiety, BPH, hydrocele, renal cyst, GERD, Schatzki's ring, glaucoma, small bowel obstruction, diverticulitis, neck pain, right pectoralis pain, adenomatous colon polyps)
Past Surgical History: Other (Small bowel obstruction, lysis of adhesion, cholecystectomy, open sigmoidectomy, right ankle repair, appendectomy)
Social History
Tobacco: Non-Smoker
Alcohol: Occasional (Drinks 4 beers a week)
Allergies / Home Medications
Allergy/AdvReac Type Severity Reaction Status Date / Time
azithromycin Allergy THROAT Verified 11/30/24 05:40
CLOSES
clindamycin HCl (From Allergy dizzy,nause Verified 11/30/24 05:40
Cleocin) a
erythromycin base Allergy Unknown Verified 11/30/24 05:40
minocycline Allergy dizzy,nause Verified 11/30/24 05:40
a
Tetracyclines Allergy Unknown Verified 11/30/24 05:40
�Medication �Instructions �Recorded
atorvastatin 10 mg tablet 10 mg PO DAILY High Cholesterol 08/18/14
lisinopril 10 mg tablet 10 mg PO BID Blood Pressure 09/06/22
omeprazole 40 mg capsule,delayed 40 mg PO DAILY Gastrointestinal 09/06/22
release Issue
Review of Systems
Vital Signs
Temp Pulse Resp BP Pulse Ox
97.4 F 64 14 132/58 100
12/01/24 11:08 12/01/24 11:45 12/01/24 11:08 12/01/24 11:29 12/01/24 11:29
Physical Exam
Results
WBC 7.4 10^3/uL (4.8-10.8) 12/01/24 04:56
Hgb 14.0 g/dL (13.0-18.0) 12/01/24 04:56
Hct 41.0 % (39.0-52.0) 12/01/24 04:56
MCV 93.2 fL (80.0-94.0) 12/01/24 04:56
Plt Count 197 10^3/uL (130-400) 12/01/24 04:56
Absolute Neuts (auto) 2.7 10^3/uL (1.4-6.5) 11/30/24 06:09
Sodium 136 mmol/L (135-145) 12/01/24 04:56
Potassium 4.0 mmol/L (3.5-5.1) 12/01/24 04:56
Chloride 105 mmol/L (98-107) 12/01/24 04:56
Carbon Dioxide 25 mmol/L (22-30) 12/01/24 04:56
BUN 14 mg/dl (9-20) 12/01/24 04:56
Creatinine 0.6 mg/dL (0.7-1.3) L 12/01/24 04:56
Calcium 8.6 mg/dl (8.4-10.2) 12/01/24 04:56
Total Bilirubin 1.1 mg/dl (0.2-1.3) 11/30/24 06:09
AST 22 U/L (17-59) 11/30/24 06:09
ALT 19 U/L (0-50) 11/30/24 06:09
Alkaline Phosphatase 48 U/L (38-126) 11/30/24 06:09
Diagnostic Image Results:
CT Chest PE Study 11/24/24:
FINDINGS: The central pulmonary arteries are well-opacified and demonstrate no filling defects to suggest pulmonary embolism. The thoracic aorta is normal in caliber and homogeneous in appearance. There is no significant hilar, mediastinal or
axillary lymphadenopathy.
The trachea and central airways are patent. There is no focal parenchymal consolidation, pneumothorax, pleural effusion or pericardial effusion. The heart is within the limits of normal in size and configuration.
The thyroid gland is homogeneous.
There is no focal suspicious osseous lesion.
Within the included portions of the upper abdomen, prior cholecystectomy is noted.
Prior GI Procedures:
EGD: 08/18/2014 (Ja) Food was found in the lower third of the esophagus. Removal of food was
accomplished.
The Z-line was irregular and was found 40 cm from the incisors.
A low-grade of narrowing Schatzki ring (acquired) was found at the
gastroesophageal junction.
Diffuse minimal inflammation characterized by congestion (edema) was
found in the gastric antrum.
The examined duodenum was normal.
EGD 09/15/2014 (Ja) - Z-line irregular, 40 cm from the incisors.
- Moderate Schatzki ring. Dilated.
- Normal mucosa was found in the upper third of the
esophagus, in the middle third of the esophagus and in
the lower third of the esophagus. Biopsied. Neg EOE, Neg Barretts
- Erosive gastropathy.
- Normal examined duodenum.
Colonoscopy: 03/08/2020 ([facility]) - Hemorrhoids found on perianal exam.
- One 3 mm polyp in the sigmoid colon, removed with a
cold snare. Resected and retrieved.
- Patent end-to-end colo-colonic anastomosis,
characterized by healthy appearing mucosa.
- One 2 mm polyp in the proximal transverse colon,
removed with a cold biopsy forceps. Resected and
retrieved.
- The examination was otherwise normal.
-Adenomas (Repeat 02/2025)
EGD [address] Mccoy note 'He had dysphagia in 2002 after swallowing
after taking some antibiotics and was found on upper endoscopy to have a
Schatzki's ring and small fundal polyps.'
Assessment / Plan
-
74-year-old male with past medical history of hypertension, hyperlipidemia, anxiety, BPH, hydrocele, renal cysts, GERD, duodenitis, history of Schatzki's ring 2014, umbilical hernia repair, glaucoma, small bowel obstruction secondary to adhesions,
diverticulitis status post open sigmoidectomy (2007) cholecystectomy, history of neck pain, right pectoralis pain (seen by orthopedics since 03/2023 for this), history of adenomatous colon polyps (02/2020) who presented to the emergency room after
having intermittent episodes of chest discomfort as well as dyspnea on exertion and PND. He had a negative cardiac workup which will be detailed. We are asked to evaluate for GI source of chest discomfort. Patient currently having reproducible
right sided chest wall pain with palpation. I did give him a dose of Maalox which he feels may have relieved most of this discomfort after returning to re-evaluate him 20 min later. He still does have some mild reproducible chest wall discomfort,
although he states 'it is still tight'.
Impression:
Chest pain
-'no obvious culprit coronary stenosis' per Cardiology notes
- patient did get some relief with Mylanta
-also has some relief with Lorazepam at home
-Denies any dysphagia with prior hx of Schatzki Ring in 2014
GERD
Hx Adenomatous polyps 02/2020-> Due for repeat 02/2025.
Plan:
-Continue Pantoprazole 40 mg daily
-Avoid ETOH
-Has Maalox prn
-Will discuss possible EGD while here vs outpatient.
-Due for colonoscopy 02/2025
-
-
Thank you for consultation and allowing me to participate in the patient's care. Please call the business analyst sales operations GI physician during the after hours with any questions or concerns.
[2024-12-01 15:14] VITALS: BP 116/65
[2024-12-01] MEDS: TYLENOL 650 MG PO (15:22)
[2024-12-01] MEDS: LIPITOR 80 MG PO (17:45)
--- NOTE | 2024-12-01 18:07 | W.DCSUMMARY ---
Discharge Summary
Discharge Data
Date of Admission: 11/30/24
Date of Discharge: 12/01/24
-
Pending Results: No
Discharge Plan
-
Patient Disposition: Home (Routine Discharge)
Discharge Diagnosis/Procedures: Cardiac catheterization, nonobstructive coronary artery disease
Chest pain unclear etiology, possible extraesophageal manifestation of reflux
Condition: Fair
Diet: Low Cholesterol and 2 Gram Sodium
Activity: As tolerated
Driving Restrictions: As prior to admission
Bathing Restrictions: None
Others Tests: Follow up with GI for outpatient EGD (esophagogastroduodenoscopy)
Activity Restrictions/Additional Instructions:
Follow up with primary care provider in 1 week of discharge, GI in 2-4 weeks of discharge, and keep your appointment with Cardiology.
Aspirin and atorvastatin prescribed for aggressive acute coronary syndrome risk reduction.
Lisinopril also reduced to daily, instead of twice of day, to allow for blood pressure room new medications Coreg and Amlodipine- started for more aggressive blood pressure control and greater acute coronary syndrome risk reduction.
Omeprazole changed from daily to twice a day for possible GERD contributing to chest pain syndrome.
Maalox prescribed as needed for heartburn, this is available over the counter.
Please take medications as prescribed/recommended and follow up with primary care provider and/or other healthcare provider involved in your care for refills and/or further adjustment to your medication regimen as necessary.
Stand Alone Forms: DC Instructions- Cath/EP Lab
Referrals:
Willie Quigley MD [Active, Gastroenterology] - in two to four weeks
Cholo Bonilla MD [Active, Cardiology] - 12/29/24 11:20 am
Referral Note: You have an appointment with Dr. Bonilla at the [place] office to followup on hospitalization.
Alexandr Purvis MD [Family Provider, [facility]] - in one week
Prescriptions:
New
carvedilol 6.25 mg Tablet
6.25 mg PO BID Qty: 60 0RF
atorvastatin 80 mg Tablet
80 mg PO QPM Qty: 30 0RF
aspirin 81 mg Tablet,Chewable
81 mg PO DAILY Qty: 30 0RF
alum-mag hydroxide-simeth [Mag-Al Plus] 200-200-20 mg/5 mL Suspension
30 ml PO QIDPRN PRN (Reason: heartburn) Qty: 3000 0RF
amlodipine 5 mg Tablet
5 mg PO DAILY Qty: 30 0RF
Changed
lisinopril 10 mg Tablet
10 mg PO DAILY Qty: 0 0RF
omeprazole 40 mg Capsule,Delayed Release(Dr/Ec)
40 mg PO BID Qty: 60 0RF
Discontinued
atorvastatin 10 MG tablet
10 mg PO DAILY
Discharge Orders:
Discharge Patient (As Directed); Ordered 12/01/24
Ordered By: Eugenia Miller
Care Plan Goals
Care Plan Goals:
Problem: Readiness for enhanced knowledge related to diagnosis and treatment plan
Goal: Understand your diagnosis and treatment plan needs, including medications if applicable.
Instructions: Know your diagnosis, underlying causes and treatment plan options, including medications if applicable. Consult with your health care team to learn about your diagnosis and treatment plan, including medications if applicable.
Discharge Date and Time
Print Language: ECUADORE[place]
== END 2024-12-01 18:45 | disposition home or self-care (01) ==
LOC: CATH 11:34
PROVIDERS: Emergency Medicine; Nurse Practitioner; ATTENDING PHYSICIAN Internal Medicine; CONSULT PHYSICIAN Internal Medicine Cardiovascular Disease; CONSULT PHYSICIAN Specialist; EMERGENCY PHYSICIAN Emergency Medicine; FAMILY PHYSICIAN Family Medicine
DX: I25.10 Atherosclerotic heart disease of native coronary artery without angina pectoris (principal); E78.00 Pure hypercholesterolemia, unspecified; F41.9 Anxiety disorder, unspecified; H40.9 Unspecified glaucoma; I10 Essential (primary) hypertension; I44.0 Atrioventricular block, first degree; Z86.718 Personal history of other venous thrombosis and embolism; K21.9 Gastro-esophageal reflux disease without esophagitis; N40.0 Benign prostatic hyperplasia without lower urinary tract symptoms; Z79.82 Long term (current) use of aspirin; Z79.899 Other long term (current) drug therapy; Z86.0101 Personal history of adenomatous and serrated colon polyps; Z87.19 Personal history of other diseases of the digestive system; Z87.442 Personal history of urinary calculi; Z88.1 Allergy status to other antibiotic agents; Z90.49 Acquired absence of other specified parts of digestive tract
CPT/HCPCS: 93799; 99152; 99153; C1894; C1887; C1769; 80048; 80053; 80061; 84484; 85025; 85027; 85347; 93005; 93458; 97162; 99285; C1760; Q9967